=== PATIENT | male | born 1950 | race Caucasian/White ===

== ENCOUNTER → 2016-08-17 | Outpatient (CLI) | payer MEDICARE, OTHER ==
[~2016-08-17] MED LIST: AMITRIPTYLINE H10 M2 PO; ARYMO ER30 MG PO; CELEBREX 200MG200 MG PO; CLARITIN LIQUI-10 MG PO; COLACE100 M1 PO; LEVITRA20 M1 PO; LIDODERM 5% PATC1 EA TOP; MAXZIDE-25MG TA1 TAB PO; NASAREL SPRAY25 ML NS; NEURONTIN300 M1 PO; NEXIUM20 MG PO; NORCO 10-325 T1 EACH PO; TESTOSTERO200 MG/1 M IM; TUSSIONEX PENN115 ML PO
== END ==
LOC: LAB 16:59
DX: E11.9 Type 2 diabetes mellitus without complications (principal); E61.1 Iron deficiency

== ENCOUNTER → 2016-10-03 | Outpatient (CLI) | payer MEDICARE, OTHER | LOC: LAB 16:10 | DX: E11.9 Type 2 diabetes mellitus without complications (principal) ==

== ENCOUNTER → 2016-11-09 | Outpatient (CLI) | payer MEDICARE, OTHER ==
[~2016-11-09] VITALS: Ht 185.4 cm; Wt 153.6 kg
[2016-11-09 18:21] VITALS: BP 138/72
--- NOTE | 2016-11-09 19:13 | NUR ---
voice mail left for Dr. Ta regarding EKG results, he is notified the patient denies any symptoms but had requested the EKG due to a Nurse at the [facility] telling him he has an irregular heart rate, copy left for Dr. ta
== END ==
LOC: LAB 17:34 → AMSURD 17:34
DX: D50.8 Other iron deficiency anemias (principal); I49.9 Cardiac arrhythmia, unspecified

== ENCOUNTER → 2016-11-10 | Outpatient (CLI) | payer MEDICARE, OTHER ==
[2016-11-09 18:21] VITALS: BP 138/72
== END ==
LOC: LAB 16:34
DX: I48.1 Persistent atrial fibrillation (principal); D50.8 Other iron deficiency anemias

== ENCOUNTER → 2016-11-17 | Outpatient (CLI) | payer MEDICARE, OTHER ==
[2016-11-09 18:21] VITALS: BP 138/72
== END ==
LOC: CARDREHAB 07:11
DX: I48.1 Persistent atrial fibrillation (principal); I10 Essential (primary) hypertension
CPT/HCPCS: A9500

== ENCOUNTER → 2016-11-24 | Outpatient (CLI) | payer MEDICARE, OTHER ==
[2016-11-09 18:21] VITALS: BP 138/72
== END ==
LOC: RAD 13:00 → LAB 16:15
DX: I48.2 Chronic atrial fibrillation (principal); D50.8 Other iron deficiency anemias; I48.1 Persistent atrial fibrillation

== ENCOUNTER → 2016-12-19 | Outpatient (CLI) | payer MEDICARE, OTHER ==
[2016-11-09 18:21] VITALS: BP 138/72
== END ==
LOC: LAB 17:00
DX: I48.0 Paroxysmal atrial fibrillation (principal); E11.9 Type 2 diabetes mellitus without complications

== ENCOUNTER → 2017-01-15 | Outpatient (CLI) | payer MEDICARE, OTHER ==
[2016-11-09 18:21] VITALS: BP 138/72
== END ==
LOC: LAB 16:58
DX: E61.1 Iron deficiency (principal); D64.9 Anemia, unspecified; I48.0 Paroxysmal atrial fibrillation; E11.8 Type 2 diabetes mellitus with unspecified complications

== ENCOUNTER → 2017-02-09 | Outpatient (CLI) | payer MEDICARE, OTHER ==
[2016-11-09 18:21] VITALS: BP 138/72
== END ==
LOC: LAB 11:54
DX: D64.9 Anemia, unspecified (principal); I48.91 Unspecified atrial fibrillation; E61.1 Iron deficiency

== ENCOUNTER → 2018-03-08 | Outpatient (CLI) | payer MEDICARE, OTHER ==
[2016-11-09 18:21] VITALS: BP 138/72
[2018-03-08 17:33] LABS: EOS # 0.2 (0.04-0.40); EOS % 2.3 % (0.0-4.0); HEMATOCRIT 40.9 % (42.0-52.0); LYMPH# 1.5 (1.50-4.00); MEAN CELL VOLUME 78 fl (78-100); MEAN CORPUSCULAR HEMOGLOBIN 25 pg (27-31); MEAN CORPUSCULAR HGB CONC 32 g/dL (33-37); MEAN PLATELET VOLUME 8.8 fl (7.4-10.4); MONO # 0.5 (0.20-0.80); NEU # 4.4 (1.40-6.50); PLATELET COUNT 235 K/mm3 (130-400); RED BLOOD COUNT 5.25 M/mm3 (4.20-5.60); RED CELL DISTRIBUTION WIDTH 17.4 % (11.5-14.5); WHITE BLOOD COUNT 6.6 K/mm3 (4.8-10.8)
[2018-03-08 18:05] LABS: ALBUMIN 3.7 g/dL (3.5-5.0); POTASSIUM 3.9 mmol/L (3.6-5.0); TOTAL BILIRUBIN 1.7 mg/dL (0.2-1.3); TOTAL PROTEIN 6.2 g/dL (6.3-8.2)
[2018-03-08 19:58] LABS: ERYTHROCYTE SEDIMENTATION RATE 6 mm/hr (0-20)
[2018-03-08 20:05] LABS: URINE APPEARANCE CLEAR; URINE BILIRUBIN NEGATIVE (NEGATIVE); URINE BLOOD NEGATIVE (NEGATIVE); URINE COLOR YELLOW; URINE GLUCOSE NEGATIVE (NEGATIVE); URINE KETONE NEGATIVE (NEGATIVE); URINE LEUKOCYTE ESTERASE NEGATIVE (NEGATIVE); URINE NITRATE NEGATIVE (NEGATIVE); URINE PROTEIN(semi-quant) NEGATIVE (NEGATIVE); URINE UROBILINOGEN NORMAL (NORMAL); URINE WBC 0-1 /hpf (0-3)
[2018-03-09 16:22] LABS: TESTOSTERONE 23 ng/dL (221-716)
== END ==
LOC: LAB 16:45
PROVIDERS: Internal Medicine
DX: Z12.5 Encounter for screening for malignant neoplasm of prostate (principal); Z12.11 Encounter for screening for malignant neoplasm of colon; E11.621 Type 2 diabetes mellitus with foot ulcer; L97.509 Non-pressure chronic ulcer of other part of unspecified foot with unspecified severity; E78.2 Mixed hyperlipidemia; N52.9 Male erectile dysfunction, unspecified; G62.9 Polyneuropathy, unspecified

== ENCOUNTER → 2019-02-20 | Outpatient (CLI) | payer MEDICARE, OTHER ==
[2016-11-09 18:21] VITALS: BP 138/72
== END ==
LOC: RAD 15:54
DX: I48.0 Paroxysmal atrial fibrillation (principal)

== ENCOUNTER → 2019-02-21 | Outpatient (CLI) | payer MEDICARE, OTHER ==
[2016-11-09 18:21] VITALS: BP 138/72
== END ==
LOC: CARDREHAB 09:17 → CARDLAB 14:32
DX: I48.0 Paroxysmal atrial fibrillation (principal)
CPT/HCPCS: A9500

== ENCOUNTER → 2019-07-08 | Outpatient (CLI) | payer MEDICARE, OTHER ==
[2016-11-09 18:21] VITALS: BP 138/72
[2019-07-08 17:23] LABS: EOS # 0.1 (0.04-0.40); EOS % 1.6 % (0.0-4.0); HEMATOCRIT 43.2 % (42.0-52.0); HEMOGLOBIN 13.8 g/dL (13.5-18.0); LYMPH# 1.6 (1.50-4.00); MEAN CELL VOLUME 85 fl (78-100); MEAN CORPUSCULAR HEMOGLOBIN 27 pg (27-31); MEAN CORPUSCULAR HGB CONC 32 g/dL (33-37); MEAN PLATELET VOLUME 8.9 fl (7.4-10.4); MONO # 0.4 (0.20-0.80); NEU # 5.3 (1.40-6.50); PLATELET COUNT 244 K/mm3 (130-400); RED BLOOD COUNT 5.08 M/mm3 (4.20-5.60); RED CELL DISTRIBUTION WIDTH 15.4 % (11.5-14.5); WHITE BLOOD COUNT 7.5 K/mm3 (4.8-10.8)
[2019-07-08 17:37] LABS: ALBUMIN 4.2 g/dL (3.4-4.8); POTASSIUM 3.8 mmol/L (3.5-5.1)
[2019-07-08 17:39] LABS: CALCIUM 9.1 mg/dL (8.3-10.5)
[2019-07-08 17:42] LABS: TOTAL BILIRUBIN 1.1 mg/dL (0.2-1.2)
[2019-07-08 17:46] LABS: MAGNESIUM 1.94 mg/dL (1.60-2.60)
== END ==
LOC: LAB 16:48
PROVIDERS: Internal Medicine
DX: D50.9 Iron deficiency anemia, unspecified (principal); E11.9 Type 2 diabetes mellitus without complications; I48.0 Paroxysmal atrial fibrillation

== ENCOUNTER → 2019-11-28 | Outpatient (CLI) | payer MEDICARE, OTHER ==
[2016-11-09 18:21] VITALS: BP 138/72
[2019-11-28 17:40] LABS: BASO # 0.1 (0.02-0.10); EOS # 0.1 (0.04-0.40); EOS % 1.7 % (0.0-4.0); HEMATOCRIT 40.8 % (42.0-52.0); HEMOGLOBIN 12.9 g/dL (13.5-18.0); LYMPH# 1.4 (1.50-4.00); MEAN CELL VOLUME 81 fl (78-100); MEAN CORPUSCULAR HEMOGLOBIN 26 pg (27-31); MEAN CORPUSCULAR HGB CONC 32 g/dL (33-37); MEAN PLATELET VOLUME 8.5 fl (7.4-10.4); MONO # 0.4 (0.20-0.80); NEU # 4.5 (1.40-6.50); PLATELET COUNT 239 K/mm3 (130-400); RED BLOOD COUNT 5.01 M/mm3 (4.20-5.60); RED CELL DISTRIBUTION WIDTH 15.6 % (11.5-14.5); WHITE BLOOD COUNT 6.5 K/mm3 (4.8-10.8)
[2019-11-28 17:43] LABS: ALBUMIN 3.9 g/dL (3.4-4.8)
[2019-11-28 17:44] LABS: POTASSIUM 3.8 mmol/L (3.5-5.1)
[2019-11-28 17:45] LABS: CALCIUM 9.2 mg/dL (8.3-10.5)
[2019-11-28 17:46] LABS: TOTAL PROTEIN 6.7 g/dL (6.2-8.1)
[2019-11-28 17:48] LABS: TOTAL BILIRUBIN 1.1 mg/dL (0.2-1.2)
== END ==
LOC: LAB 16:54
PROVIDERS: Internal Medicine
DX: E11.621 Type 2 diabetes mellitus with foot ulcer (principal); E11.42 Type 2 diabetes mellitus with diabetic polyneuropathy; D64.9 Anemia, unspecified; E61.1 Iron deficiency